=== PATIENT | female | born 1960 | race Caucasian/White ===

== ENCOUNTER 2020-01-28 15:25 | Emergency (ER) | payer MEDICARE, MEDICAID, SELFPAY ==
[2020-01-28] VITALS (37 sets, daily range): BP systolic 100–168; BP diastolic 41–87; PULSE 69–85; RESP 11–34; TEMP 37.1; O2SAT 96–100
[2020-01-28 17:15] LABS: Glucose Point of Care 189 (65-105)
--- NOTE | 2020-01-28 17:36 | ED.GENADULT ---
HPI - General Adult General Chief complaint: Shortness of Breath/Dyspnea Stated complaint: MULTIPLE C/O Time Seen by Provider: 01/28/20 16:21 History of Present Illness HPI narrative: This is a 59-year-old female who presents to the emergency department with complaint of parasites . Patient has a longstanding history of 3 years plus with [place] infectious disease but feels that they are not taking her seriously. She has been told she has cellulitis of the face but she does not believe this to be true and states she sees parasites on her body creating open wounds. She reports this is also causing her to have difficulty breathing as it is causing swelling in her nose. Patient is speaking in full sentences, SPO2 is 100% on 4 L per nasal cannula, which is patient's norm for O2 flow. She denies any fever or chills. She reports she has had increased abdominal pain that has been intermittent and a poor appetite. She is requesting referrals within the [facility] for further evaluation. Related Data Allergies Allergy/AdvReac Type Severity Reaction Status Date / Time adhesive Allergy Unknown Verified 01/28/20 15:51 clindamycin Allergy Unknown Verified 01/28/20 15:51 metformin Allergy Unknown Verified 01/28/20 15:51 mupirocin [From Bactroban] Allergy Unknown Verified 01/28/20 15:51 nitrofurantoin Allergy Unknown Verified 01/28/20 15:51 [From Macrobid] prochlorperazine Allergy Unknown Verified 01/28/20 15:51 [From Compazine] Review of Systems Review of Systems: Narrative: CONSTITUTIONAL: Denies fever, chills, or sweats. EYES: Denies visual changes, redness, or discharge. ENT: Denies rhinorrhea, congestion, sore throat, or otalgia. Has scabbed extensive wound to submental area that has been diagnosed as cellulitis. CARDIOVASCULAR: Denies chest pain, palpitations, or edema. RESPIRATORY: Denies cough or dyspnea. GASTROINTESTINAL: Reports intermittent abdominal pain, poor appetite. Denies nausea, vomiting, diarrhea. Reports seeing parasites with hair in her stools. GENITOURINARY: Denies dysuria or hematuria. SKIN: Patient has multiple circular scabbed areas that she reports as contact areas from parasites. MUSCULOSKELETAL: Denies back pain, joint pain, or myalgia. NEUROLOGIC: Denies headache, numbness, or weakness. PSYCHIATRIC: Has a history of anxiety and depression PMFSH Past Medical History Medical History (Updated 01/28/20 @ 20:51 by ASHKAN Mcdonald) Anemia CAD (coronary artery disease) Cellulitis, face CHF (congestive heart failure) History of diabetes mellitus HLD (hyperlipidemia) Hypertension Surgical History Surgical History (Updated 01/28/20 @ 20:54 by ASHKAN Mcdonald) H/O hysterectomy with unilateral oophorectomy History of appendectomy History of cholecystectomy Family History Family History (Updated 01/28/20 @ 20:52 by ASHKAN Mcdonald) Father Lung cancer Sibling Thyroid condition Exam Narrative: Exam Narrative: GENERAL: Well-appearing, well-nourished, and in no acute distress. HEAD: Normocephalic, atraumatic. EYES: Sclera anicteric ENT: Nares clear, no rhinorrhea or epistaxis. Mucous membranes moist. NECK: Supple. No cervical lymphadenopathy CHEST: Clear to auscultation. No respiratory distress. HEART: Regular rate and rhythm. No murmur heard. Normal peripheral pulses. ABDOMEN: Soft, obese, nondistended, mildly tender diffusely to light palpation, normal active bowel sounds. EXTREMITIES: No edema. Ambulatory with a cane SKIN: Warm, dry, multiple small scabbed areas over face, neck, torso. No erythema/drainage from these sites. Scabbed elongated wound to submental area (x3 years)-no erythema or drainage NEURO: No focal deficits. Alert and oriented x3. PSYCH: Normal mood and affect. Course Course Emergency Course: Discussed lab and diagnostic findings with the patient. Status has remained unchanged. VS are stable. Speaks in full sentences. Pt feels co
[2020-01-28 18:21] LABS: Basophils Percent Auto 0.4 % (0.2-1.2); Eosinophils Absolute Auto 0.1 K/mm3 (0-0.3); Hematocrit 36.3 % (37.0-47.0); Hemoglobin 11.4 g/dL (12.0-15.0); Immature Granulocyte Absolute 0.02 K/mm3 (0.00-0.031); Immature Granulocyte Percent A 0.4 % (0-0.5); Lymphocytes Absolute Auto 0.76 K/mm3 (0.9-3.2); Lymphocytes Percent Auto 13.5 % (18.3-44.2); Mean Corpuscular HGB Conc 31.4 g/dl (32-36); Mean Corpuscular Hemoglobin 26.7 pg (26-34); Mean Platelet Volume 9.6 fl (7.4-10.4); Monocytes Absolute Auto 0.3 K/mm3 (0.1-0.6); Neutrophils Absolute Auto 4.4 K/mm3 (1.3-6.7); Neutrophils Percent Auto 77.7 % (45.5-73.1); Platelet Count Result 172 k/mm3 (150-375); Red Blood Count 4.27 M/mm3 (4.2-5.4); Red Cell Distribution Width 13.6 % (11.5-14.5); White Blood Count 5.6 K/mm3 (4.5-10.0)
[2020-01-28 18:37] LABS: Alanine Aminotransferase 15 U/L (4-35); Albumin Level 4.2 g/dL (3.5-5.1); Alkaline Phosphatase 129 U/L (38-126); Aspartate Amino Transferase 23 U/L (14-36); Bilirubin,Total 0.4 mg/dL (0.2-1.3); Blood Urea Nitrogen 9 mg/dL (7-17); Calcium 9.7 mg/dL (8.4-10.2); Carbon Dioxide > 40 mmol/L (22-30); Chloride 94 mmol/L (98-107); Estimated CRCL calculation 79 ml/min; Estimated Glomerular Filt Rate > 60; Glucose 170 mg/dL (65-105); Lipase 80 U/L (23-300); Potassium 3.8 mmol/L (3.4-5.0); Sodium 138 mmol/L (137-145)
[2020-01-28 19:27] LABS: Alveolar/Arterial O2 Gradient 86.9 mmHg; Base Excess ABG 6.8 mEq/l (+/-2.0); Fractional Inspired Oxygen 40 %; HCO3 ABG 30.9 mEq/l (22.0-26.0); Oxygen Content ABG 17.1 %vol (16.0-22.0); Oxygen Saturation ABG 99.1 % (95.0-100.0); PCO2 ABG 42.2 mmHg (35.0-45.0); PO2 ABG 149.8 mmHg (80.0-100.0); PO2 FiO2 Ratio Arterial Blood 3.75 %; Total Hemoglobin 12.2 g/dL (12.0-18.0); pH ABG 7.483 (7.350-7.450)
[2020-01-28 19:28] LABS: Device NASAL CANNULA; Modified Allen's Test Pass; Site Drawn RIGHT RADIAL
== END 2020-01-28 19:54 | disposition home or self-care (01) ==
PROVIDERS: Nurse Practitioner
DX: R10.84 Generalized abdominal pain (principal); D64.9 Anemia, unspecified; I25.10 Atherosclerotic heart disease of native coronary artery without angina pectoris; I50.9 Heart failure, unspecified; E11.9 Type 2 diabetes mellitus without complications; E78.5 Hyperlipidemia, unspecified; I11.0 Hypertensive heart disease with heart failure
CPT/HCPCS: 36415; 36600; 80053; 82805; 82948; 83690; 85025; 99283

== ENCOUNTER 2020-02-17 15:41 | Outpatient (CLI) | payer MEDICARE, MEDICAID, SELFPAY ==
--- NOTE | ~2020-02-17 | XR_ITS ---
XR abdomen obstructive series 02/17/2020 16:13 Indication: Lower abdominal pain and bloating. Nausea. Constipation. Procedure: Supine and upright views of the abdomen Comparison: No prior studies for comparison. Findings: Bowel pattern is nonobstructive. Moderate colonic fecal loading. There are cholecystectomy clips. There are surgical clips in the right lower abdomen, possibly cyst due to appendectomy. Correl ate clinically. There are pelvic phleboliths. Lung bases unremarkable. Impression: 1: No acute abdominal abnormality. Reviewed, dictated and finalized at location A. Impression: 1: No acute abdominal abnormality.
== END 2020-02-17 15:42 | disposition home or self-care (01) ==
LOC: CHSIMG 15:53
PROVIDERS: PCP Family Medicine; Visit Provider Family Medicine
DX: K59.00 Constipation, unspecified (principal); R11.2 Nausea with vomiting, unspecified
CPT/HCPCS: 74019

== ENCOUNTER 2020-02-18 16:11 | Outpatient (CLI) | payer MEDICARE, SELFPAY ==
[2020-02-18 16:28] LABS: Basophils Absolute Auto 0.02 K/mm3 (0.00-0.10); Basophils Percent Auto 0.3 % (0.0-1.0); Eosinophils Percent Auto 1.3 % (1.0-6.0); Hematocrit 33.4 % (35.0-49.0); Hemoglobin 10.8 g/dL (12.0-15.0); Immature Granulocyte Absolute 0.04 K/mm3 (0.00-0.00); Immature Granulocyte Percent A 0.5 % (0.0-0.0); Lymphocytes Absolute Auto 1.02 K/mm3 (1.10-4.50); Lymphocytes Percent Auto 13.7 % (18.0-42.0); Mean Corpuscular HGB Conc 32.3 g/dL (32.0-36.0); Mean Corpuscular Hemoglobin 27.1 pg (27.0-31.0); Mean Corpuscular Volume 83.7 fL (78.0-102.0); Mean Platelet Volume 9.6 fl (9.2-11.8); Monocytes Absolute Auto 0.41 K/mm3 (0.10-0.90); Monocytes Percent Auto 5.5 % (2.0-11.0); Neutrophils Absolute Auto 5.9 K/mm3 (1.7-7.2); Neutrophils Percent Auto 78.7 % (50.0-70.0); Platelet Count Result 156 K/mm3 (150-420); Red Blood Count 3.99 M/mm3 (4.20-5.40); Red Cell Distribution Width 13.1 % (11.6-14.4); White Blood Count 7.4 K/mm3 (4.8-10.8)
[2020-02-18 17:06] LABS: Alanine Aminotransferase 14 U/L (14-59); Albumin Level 3.3 g/dL (3.4-5.0); Alkaline Phosphatase 119 U/L (46-116); Anion Gap 11.4 mmol/L (7-16); Aspartate Amino Transferase 19 U/L (15-37); Bilirubin,Total 0.3 mg/dL (0.00-1.00); Blood Urea Nitrogen 17 mg/dL (7-18); Calcium 8.8 mg/dL (8.5-10.1); Carbon Dioxide 34 mmol/L (21-32); Chloride 101 mmol/L (98-108); Estimated Glomerular Filt Rate 41; Glucose 217 mg/dL (70-99); Osmolality Calculated 302 mOsm/kg (285-295); Potassium 4.4 mmol/L (3.5-5.1); Sodium 142 mmol/L (136-145)
== END 2020-02-18 16:12 | disposition home or self-care (01) ==
LOC: CHSLAB 16:16
PROVIDERS: PCP Family Medicine; Visit Provider Family Medicine
DX: S01.90XA Unspecified open wound of unspecified part of head, initial encounter (principal); S11.90XA Unspecified open wound of unspecified part of neck, initial encounter; R11.2 Nausea with vomiting, unspecified
CPT/HCPCS: 36415; 80053; 85025

== ENCOUNTER 2020-02-19 09:46 | Outpatient (RCR) | payer MEDICARE, MEDICAID, SELFPAY ==
[2020-02-19 12:34] VITALS: BMI 45.3
== END 2020-05-04 07:53 | disposition home or self-care (01) ==
LOC: ANHWOC 09:46
PROVIDERS: PCP Family Medicine; Visit Provider Family Medicine
DX: S01.90XD Unspecified open wound of unspecified part of head, subsequent encounter (principal); S11.90XD Unspecified open wound of unspecified part of neck, subsequent encounter
CPT/HCPCS: 99212; A9270; G0463

== ENCOUNTER 2020-02-20 19:02 | Emergency (ER) | payer MEDICARE, MEDICAID, SELFPAY ==
[2020-02-20 19:29] VITALS: BP 151/81; PULSE 79; RESP 20; TEMP 36.8; O2SAT 99
--- NOTE | 2020-02-20 19:55 | PC.NURSE ---
Bilateral calf wounds irrigated with sterile saline 1000mL. Pt tolerated well. Awaiting further laceration care/instruction per Dr Fernandez.
[2020-02-20 20:27] VITALS: BP 155/80; PULSE 75; RESP 20; O2SAT 100
--- NOTE | 2020-02-20 20:27 | PC.NURSE ---
Continues to wait for eval per Dr Fernandez. No change in condition. [place] provided.
[2020-02-20 21:00] VITALS: BP 171/95; PULSE 80; RESP 20; O2SAT 100
--- NOTE | 2020-02-20 21:30 | PC.NURSE ---
Dr Fernandez at bedside for initial eval.
--- NOTE | 2020-02-20 21:51 | ED.WOUNDLAC ---
HPI - Wound/Laceration General Chief Complaint: Wound/Laceration Stated Complaint: face wound Source: patient Mode of arrival: ambulatory Limitations: no limitations History of Present Illness HPI narrative: 59 y.o. with open wound anterior neck x 6 weeks. Pt. states she has been taking doxycylcine x 3.5 weeks prescribed by infectious disease doc for staph aureus. She is being followed at a wound clinic, last seen 2 or 3 days ago. The wound has been painful, reduced with [place] 10/325 QID. During the night she developed increased itching and tenderness. Today at 4 PM she began having shooting pain throughout the wound, rated 14/10 on arrival. Pt had chills for several hours this afternoon. Denies fever. Moving her jaw, biting down, swallowing or other activities do not make the pain worse. She spoke wither her PCP today who started gentamicin ointment. She's worried this may cause her throat to close up during the night, or may heal incorrectly leaving a deformity in her neck. She has a hx of skin picking and chronic rash on trunk and perineum. Related Data Home Medications Medication Instructions Recorded Confirmed allopurinol 100 mg tablet 100 mg PO DAILY 02/06/20 02/20/20 amlodipine 5 mg tablet 5 mg PO DAILY 02/06/20 02/20/20 ascorbate calcium (vitamin C) 500 500 mg PO DAILY 02/06/20 02/20/20 mg tablet aspirin 81 mg tablet,delayed 81 mg PO DAILY 02/06/20 02/20/20 release atorvastatin 20 mg tablet 20 mg PO DAILY 02/06/20 02/20/20 buspirone 15 mg tablet 30 mg PO BID 02/06/20 02/20/20 calcium polycarbophil 625 mg tablet 1,250 mg PO DAILY 02/06/20 02/20/20 cholecalciferol (vitamin D3) 1,250 50,000 unit PO WEEKLY 02/06/20 02/20/20 mcg (50,000 unit) capsule cyclosporine 0.05 % eye drops in a 1 drop EACH EYE Q12H 02/06/20 02/20/20 dropperette doxycycline hyclate 100 mg capsule 100 mg PO Q12H cap 02/06/20 02/20/20 ferrous sulfate 325 mg (65 mg 325 mg PO BID 02/06/20 02/20/20 iron) tablet fluticasone propionate 50 1 spray NASAL DAILY 02/06/20 02/20/20 mcg/actuation nasal spray,suspension furosemide 40 mg tablet 40 mg PO QAM 02/06/20 02/20/20 gabapentin 400 mg capsule 400 mg PO BID cap 02/06/20 02/20/20 glipizide 5 mg tablet 5 mg PO BID 02/06/20 02/20/20 hydrocodone 10 mg-acetaminophen 1 tablet PO Q4H PRN 02/06/20 02/20/20 325 mg tablet linaclotide 72 mcg capsule 72 mcg PO DAILY 02/06/20 02/20/20 magnesium oxide 400 mg (241.3 mg 400 mg PO DAILY 02/06/20 02/20/20 magnesium) tablet methyl salicylate 15 %-menthol 1 % 1 applic TOPICAL TID 02/06/20 02/20/20 topical cream metoprolol succinate 50 mg 50 mg PO BID 02/06/20 02/20/20 tablet,extended release 24 hr montelukast 10 mg tablet 10 mg PO DAILY 02/06/20 02/20/20 nitroglycerin 0.4 mg sublingual 0.4 mg SUBLINGUAL Q5M PRN 02/06/20 02/20/20 tablet omeprazole 20 mg capsule,delayed 20 mg PO DAILY 02/06/20 02/20/20 release ropinirole 4 mg tablet 4 mg PO HS tablet 02/06/20 02/20/20 sitagliptin 100 mg tablet 100 mg PO DAILY 02/06/20 02/20/20 venlafaxine 150 mg 300 mg PO QAM cap 02/06/20 02/20/20 capsule,extended release 24 hr docusate sodium 50 mg capsule 50 mg PO BID cap 02/20/20 02/20/20 gabapentin 800 mg PO HS 02/20/20 02/20/20 hydroxyzine HCl 25 mg PO BID 02/20/20 02/20/20 indomethacin 50 mg PO BID 02/20/20 02/20/20 trazodone 200 mg PO HS 02/20/20 02/20/20 Allergies Allergy/AdvReac Type Severity Reaction Status Date / Time adhesive Allergy Unknown Verified 02/17/20 10:21 clindamycin Allergy Unknown Verified 02/17/20 10:21 metformin Allergy Unknown Verified 02/17/20 10:21 mupirocin [From Bactroban] Allergy Unknown Verified 02/17/20 10:21 nitrofurantoin Allergy Unknown Verified 02/17/20 10:21 [From Macrobid] prochlorperazine Allergy Unknown Verified 02/17/20 10:21 [From Compazine] Review of Systems Constitutional: Constitutional: Denies fever(s) ENT: Denies dental pain, Denies dysphagia, Denies sore throat and D
[2020-02-20] MEDS: CLONIDINE HCL 0.1 MG TABLET PO (22:00)
--- NOTE | 2020-02-20 22:02 | PC.NURSE ---
Wound culture obtained by Dr Fernandez, sent to lab.
--- NOTE | 2020-02-20 22:03 | PC.NURSE ---
Clonidine order verified with Dr Fernandez. States he is giving medication for pt's report of pain.
[2020-02-20 22:09] LABS: Basophils Absolute Auto 0.03 K/mm3 (0.00-0.10); Basophils Percent Auto 0.5 % (0.0-1.0); Eosinophils Percent Auto 3.2 % (1.0-6.0); Hematocrit 33.4 % (35.0-49.0); Hemoglobin 10.5 g/dL (12.0-15.0); Immature Granulocyte Absolute 0.03 K/mm3 (0.00-0.00); Immature Granulocyte Percent A 0.5 % (0.0-0.0); Lymphocytes Absolute Auto 1.34 K/mm3 (1.10-4.50); Lymphocytes Percent Auto 21.3 % (18.0-42.0); Mean Corpuscular HGB Conc 31.4 g/dL (32.0-36.0); Mean Corpuscular Volume 85.9 fL (78.0-102.0); Mean Platelet Volume 9.1 fl (9.2-11.8); Monocytes Absolute Auto 0.46 K/mm3 (0.10-0.90); Monocytes Percent Auto 7.3 % (2.0-11.0); Neutrophils Absolute Auto 4.2 K/mm3 (1.7-7.2); Neutrophils Percent Auto 67.2 % (50.0-70.0); Platelet Count Result 138 K/mm3 (150-420); Red Blood Count 3.89 M/mm3 (4.20-5.40); Red Cell Distribution Width 13.2 % (11.6-14.4); White Blood Count 6.3 K/mm3 (4.8-10.8)
[2020-02-20 22:16] VITALS: BP 167/89; PULSE 82; RESP 20; O2SAT 99
[2020-02-20 22:17] LABS: Anion Gap 7.1 mmol/L (7-16); Blood Urea Nitrogen 10 mg/dL (7-18); Carbon Dioxide 35 mmol/L (21-32); Chloride 102 mmol/L (98-108); Estimated CRCL calculation 73 ml/min; Estimated Glomerular Filt Rate 58; Glucose 115 mg/dL (70-99); Osmolality Calculated 290 mOsm/kg (285-295); Potassium 4.1 mmol/L (3.5-5.1); Sodium 140 mmol/L (136-145)
[2020-02-20 23:05] VITALS: BP 142/89; PULSE 79; RESP 20; O2SAT 100
== END 2020-02-20 23:05 | disposition home or self-care (01) ==
PROVIDERS: Emergency Provider Family Medicine; PCP Family Medicine
DX: S11.90XA Unspecified open wound of unspecified part of neck, initial encounter (principal); M54.2 Cervicalgia; I25.10 Atherosclerotic heart disease of native coronary artery without angina pectoris; I11.0 Hypertensive heart disease with heart failure; I50.9 Heart failure, unspecified; E11.9 Type 2 diabetes mellitus without complications; E78.5 Hyperlipidemia, unspecified
CPT/HCPCS: 36415; 80048; 85025; 87070; 87077; 87186; 87205; 99282; 99283; A9270

== ENCOUNTER 2020-03-15 13:04 | Emergency (ER) | payer MEDICARE, MEDICAID, SELFPAY ==
[2020-03-15 13:30] VITALS: BP 141/73; PULSE 79; RESP 20; TEMP 36.9; O2SAT 97
--- NOTE | 2020-03-15 13:44 | ED.SKABFB ---
HPI - Skin/Abscess/Foreign Bdy General Chief complaint: Skin/Abscess/Foreign Body Stated complaint: Pain on skin and back Source: patient Mode of arrival: ambulatory Limitations: no limitations History of Present Illness HPI narrative: This is a 59-year-old female with multiple medical problems with diabetes hypertension and chronic MRSA infections some currently having a lesion mid back that is burning, with an area of erythema and apparent vesicle that appeared healed, currently no fever or chills and has been treated for MRSA in the past for lesions under her chin and on various areas of her body. Patient is seeing Infectious Disease is for this condition. Currently there is no chest pain no shortness of breath no fever chills no nausea vomiting. The area on her back is tender currently not draining is flat macular looks like healed vesicles with some crusting and surrounding erythema that she describes as burning and painful. MD complaint: rash Onset (ago): day(s) Location: back Severity: moderate Severity scale (1-10): 7 Quality: burning Pain Consistency: constant Relieving factors: none Exacerbating factors: none Context: recent illness Associated symptoms: denies other symptoms Treatments prior to arrival: none Related Data Home Medications Medication Instructions Recorded Confirmed aspirin 81 mg tablet,delayed 81 mg PO DAILY 02/06/20 03/15/20 release buspirone 15 mg tablet 30 mg PO BID 02/06/20 03/15/20 calcium polycarbophil 625 mg tablet 1,250 mg PO DAILY 02/06/20 03/15/20 doxycycline hyclate 100 mg capsule 100 mg PO Q12H cap 02/06/20 03/15/20 furosemide 40 mg tablet 40 mg PO QAM 02/06/20 03/15/20 hydrocodone 10 mg-acetaminophen 1 tablet PO Q4H PRN 02/06/20 03/15/20 325 mg tablet methyl salicylate 15 %-menthol 1 % 1 applic TOPICAL TID 02/06/20 03/15/20 topical cream nitroglycerin 0.4 mg sublingual 0.4 mg SUBLINGUAL Q5M PRN 02/06/20 03/15/20 tablet sitagliptin 100 mg tablet 100 mg PO DAILY 02/06/20 03/15/20 hydroxyzine HCl 25 mg PO BID 02/20/20 03/15/20 sulfamethoxazole 800 1 tablet PO Q12H 02/25/20 03/15/20 mg-trimethoprim 160 mg tablet Allergies Allergy/AdvReac Type Severity Reaction Status Date / Time adhesive Allergy Unknown Unknown Verified 03/05/20 10:22 clindamycin Allergy Unknown Unknown Verified 03/05/20 10:22 metformin Allergy Unknown Unknown Verified 03/05/20 10:22 mupirocin [From Bactroban] Allergy Unknown Unknown Verified 03/05/20 10:22 nitrofurantoin Allergy Unknown Verified 03/05/20 10:22 [From Macrobid] prochlorperazine Allergy Unknown Verified 03/05/20 10:22 [From Compazine] Review of Systems Review of Systems: All systems reviewed & are unremarkable except as noted in HPI and below PMFSH Past Medical History Medical History Anemia CAD (coronary artery disease) Cellulitis, face CHF (congestive heart failure) History of diabetes mellitus HLD (hyperlipidemia) Hypertension Surgical History Surgical History H/O hysterectomy with unilateral oophorectomy History of appendectomy History of cholecystectomy Family History Family History Father Lung cancer Sibling Thyroid condition Social History Social History Gender identity (if verbalized by the patient): Female Exam Const: General: no acute distress Orientation/consciousness: patient oriented x3 HENMT: Head: normal to inspection Eyes: Pupils: Equal, round and reactive pupils present Neck: Neck: normal visual inspection Chest: Chest palpation & inspection: normal inspection of the chest Resp: Effort & Inspection: normal respiratory effort Cardio: Rate: regular rate Rhythm: regular rhythm GI: Auscultation: normal bowel sounds : General: Yes no CVA tenderness Ski
[2020-03-15] MEDS: ACYCLOVIR 200 MG CAPSULE 800 MG PO (13:55)
[2020-03-15] MEDS: MORPHINE SULFATE 4 MG/ML INJ 2 MG IM (13:55)
[2020-03-15 14:08] VITALS: RESP 17
== END 2020-03-15 14:12 | disposition home or self-care (01) ==
PROVIDERS: Emergency Provider Emergency Medicine; PCP Family Medicine
DX: L03.312 Cellulitis of back [any part except buttock and flank] (principal); B02.8 Zoster with other complications
CPT/HCPCS: 96372; 99283; A9270; J2270

== ENCOUNTER 2020-04-05 13:46 | Emergency (ER) | payer MEDICARE, MEDICAID, SELFPAY ==
[2020-04-05 13:50] VITALS: BP 161/78; PULSE 88; RESP 20; TEMP 36.4; O2SAT 99
--- NOTE | 2020-04-05 13:53 | ED.FEVER ---
HPI - Fever General Chief Complaint: Fever Stated Complaint: fever Time Seen by Provider: 04/05/20 13:54 Source: patient and RN notes reviewed Mode of arrival: ambulatory Limitations: no limitations History of Present Illness HPI Narrative: patient states that she has been having feelings of general malaise. She took her temperature home and it was 99.6. 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 She states she has been having some abdominal pain in the right upper quadrant. MD elicited complaint: fever and malaise Pertinent past history: diabetes Exacerbating factors: nothing Relieving factors: nothing Associated symptoms: abdominal pain Related Data Home Medications Medication Instructions Recorded Confirmed aspirin 81 mg tablet,delayed 81 mg PO DAILY 02/06/20 03/23/20 release calcium polycarbophil 625 mg tablet 1,250 mg PO DAILY 02/06/20 03/23/20 doxycycline hyclate 100 mg capsule 100 mg PO Q12H cap 02/06/20 03/23/20 furosemide 40 mg tablet 40 mg PO QAM 02/06/20 03/23/20 hydrocodone 10 mg-acetaminophen 1 tablet PO Q4H PRN 02/06/20 03/23/20 325 mg tablet methyl salicylate 15 %-menthol 1 % 1 applic TOPICAL TID 02/06/20 03/23/20 topical cream nitroglycerin 0.4 mg sublingual 0.4 mg SUBLINGUAL Q5M PRN 02/06/20 03/23/20 tablet sitagliptin 100 mg tablet 100 mg PO DAILY 02/06/20 03/23/20 hydroxyzine HCl 25 mg PO BID 02/20/20 03/23/20 Allergies Allergy/AdvReac Type Severity Reaction Status Date / Time adhesive Allergy Unknown Unknown Verified 03/05/20 10:22 clindamycin Allergy Unknown Unknown Verified 03/05/20 10:22 metformin Allergy Unknown Unknown Verified 03/05/20 10:22 mupirocin [From Bactroban] Allergy Unknown Unknown Verified 03/05/20 10:22 nitrofurantoin Allergy Unknown Verified 03/05/20 10:22 [From Macrobid] prochlorperazine Allergy Unknown Verified 03/05/20 10:22 [From Compazine] Review of Systems Constitutional: Constitutional: Denies chills Eyes: Eyes: Reports no additional eye complaints ENT: Reports system reviewed and no additional complaints, except as documented Cardiovascular: Cardiovascular: Reports no additional cardiovascular complaints Respiratory: Respiratory: Reports no additional respiratory complaints Gastrointestinal: Gastrointestinal: Reports abdominal pain (RUQ), Denies nausea and Denies vomiting Genitourinary: Genitourinary: Reports no additional female genitourinary complaints Neurologic: Reports system reviewed and no additional complaints, except as documented Psychiatric: Psychiatric: Reports no additional psychiatric complaints Allergic/Immunologic: Allergic/Immunologic: Reports no additional allergic/immunologic complaints PMFSH Past Medical History Medical History Anemia CAD (coronary artery disease) Cellulitis, face CHF (congestive heart failure) History of diabetes mellitus HLD (hyperlipidemia) Hypertension Surgical History Surgical History H/O hysterectomy with unilateral oophorectomy History of appendectomy History of cholecystectomy Family History Family History Father Lung cancer Sibling Thyroid condition Social History Social History Gender identity (if verbalized by the patient): Female Exam Const: General: healthy appearing, no acute distress and alert Nutritional Appearance: well nourished and obese centrally obese Orientation/consciousness: patient oriented x3 HENMT: Head: normal to inspection Ears: external ears normal General nose exam: Normal external nose present Face and sinus: normal facial exam Mouth: Yes lip normal Eyes: Conjunctivae: conjunctivae normal Pupils: Equal, round and reactive pupils present EOM: EOMs intact bilaterally Neck:
[2020-04-05 14:38] LABS: Basophils Absolute Auto 0.04 K/mm3 (0.00-0.10); Basophils Percent Auto 0.5 % (0.0-1.0); Eosinophils Absolute Auto 0.24 K/mm3 (0.02-0.50); Eosinophils Percent Auto 2.9 % (1.0-6.0); Hematocrit 34.7 % (35.0-49.0); Hemoglobin 10.8 g/dL (12.0-15.0); Immature Granulocyte Absolute 0.03 K/mm3 (0.00-0.00); Immature Granulocyte Percent A 0.4 % (0.0-0.0); Lymphocytes Absolute Auto 1.27 K/mm3 (1.10-4.50); Lymphocytes Percent Auto 15.4 % (18.0-42.0); Mean Corpuscular HGB Conc 31.1 g/dL (32.0-36.0); Mean Corpuscular Hemoglobin 26.9 pg (27.0-31.0); Mean Corpuscular Volume 86.5 fL (78.0-102.0); Mean Platelet Volume 9.3 fl (9.2-11.8); Monocytes Absolute Auto 0.48 K/mm3 (0.10-0.90); Monocytes Percent Auto 5.8 % (2.0-11.0); Neutrophils Absolute Auto 6.2 K/mm3 (1.7-7.2); Platelet Count Result 182 K/mm3 (150-420); Red Blood Count 4.01 M/mm3 (4.20-5.40); Red Cell Distribution Width 13.3 % (11.6-14.4); White Blood Count 8.2 K/mm3 (4.8-10.8)
[2020-04-05 14:39] LABS: Add Urine Microscopic? NO; Appearance Urine Clear (Clear); Bilirubin Urine Negative (Negative); Blood Urine Negative (Negative); Color Urine Yellow (Yellow); Glucose Urine UA Negative (Negative); Ketones Urine Negative (Negative); Leukocyte Esterase Ur Negative LEU/UL (Negative); Nitrate Urine Negative (Negative); Protein Urine Negative (Negative); Specific Grav Ur 1.015 (1.010-1.020); Urobilinogen Urine 0.2 mg/dL (0.2-1.0); pH Urine 5.5 (5.0-8.0)
[2020-04-05 14:54] LABS: Alanine Aminotransferase 14 U/L (14-59); Albumin Level 3.4 g/dL (3.4-5.0); Alkaline Phosphatase 140 U/L (46-116); Anion Gap 8.9 mmol/L (7-16); Aspartate Amino Transferase 18 U/L (15-37); Bilirubin,Total 0.3 mg/dL (0.00-1.00); Blood Urea Nitrogen 16 mg/dL (7-18); CRP 2.6 mg/dL (0.0-0.9); Calcium 9.2 mg/dL (8.5-10.1); Carbon Dioxide 35 mmol/L (21-32); Chloride 100 mmol/L (98-108); Estimated Glomerular Filt Rate 50; Glucose 159 mg/dL (70-99); Osmolality Calculated 294 mOsm/kg (285-295); Potassium 3.9 mmol/L (3.5-5.1); Sodium 140 mmol/L (136-145); Total Protein 7.1 g/dL (6.4-8.2)
[2020-04-05 15:30] VITALS: PULSE 88; RESP 18; O2SAT 99
== END 2020-04-05 15:30 | disposition home or self-care (01) ==
PROVIDERS: Emergency Provider Emergency Medicine; PCP Family Medicine
DX: R10.9 Unspecified abdominal pain (principal); I25.10 Atherosclerotic heart disease of native coronary artery without angina pectoris; I50.9 Heart failure, unspecified; E78.5 Hyperlipidemia, unspecified; I10 Essential (primary) hypertension
CPT/HCPCS: 36415; 80053; 81003; 85025; 86140; 99283

== ENCOUNTER 2020-04-10 21:45 | Emergency (ER) | payer MEDICARE, MEDICAID, SELFPAY ==
[2020-04-10 22:10] VITALS: BP 150/83; PULSE 88; RESP 18; TEMP 37.5; O2SAT 100
--- NOTE | 2020-04-10 22:38 | ED.WOUNDLAC ---
HPI - Wound/Laceration General Chief Complaint: Wound/Laceration Stated Complaint: abscess on back,skin infection,fever,body aches Time Seen by Provider: 04/10/20 22:00 Source: patient Mode of arrival: wheelchair Limitations: no limitations History of Present Illness HPI narrative: 59-year-old woman with a history of type 2 diabetes, coronary artery disease, chronic facial wound, coronary artery disease, congestive heart failure, hypertension comes in today complaining of painful lesions on her back, fever, fatigue and not feeling well. She states that the lesions are very small yesterday that her much larger today and swollen. She states that her temperature was up to 100.0 today. She is normally not that high. She states that she feels nauseous and weak. She states that she has parasitic infections , is a chronic wound pickers material handlers, and she is being treated by Dr. Day, [facility]. Staff who saw her 5 days ago states the wound sizes have not changed significantly. Onset (ago): day(s) Location: face Body four view annotation: 1. 3 x 7 cm wound with swelling at the caudal aspect. No fluctuance. Roughly triangular shaped area of denuded skin. 2. 3 x 7 cm wound with denuded skin but minimal swelling or erythema. No fluctuance and minimal induration. 3. 8 by 2.5 cm wound without drainage or swelling. There is pink granulation tissue present. Place: home Context: other ( chronic wound packing) Associated symptoms: suspect foreign body present ( hookworms ), nausea/vomiting and fever Related Data Home Medications Medication Instructions Recorded Confirmed aspirin 81 mg tablet,delayed 81 mg PO DAILY 02/06/20 04/10/20 release furosemide 40 mg tablet 40 mg PO QAM 02/06/20 04/10/20 hydrocodone 10 mg-acetaminophen 1 tablet PO Q4H PRN 02/06/20 04/10/20 325 mg tablet nitroglycerin 0.4 mg sublingual 0.4 mg SUBLINGUAL Q5M PRN 02/06/20 04/10/20 tablet sitagliptin 100 mg tablet 100 mg PO DAILY 02/06/20 04/10/20 hydroxyzine HCl 50 mg PO Q6-8H PRN 02/20/20 04/10/20 ascorbate calcium (vitamin C) 500 mg PO BID 04/10/20 04/10/20 calcium polycarbophil [Fiber-Lax] 1,250 mg PO DAILY 04/10/20 04/10/20 docusate sodium [Stool Softener] 100 mg PO BID 04/10/20 04/10/20 ferrous sulfate 325 mg PO TID 04/10/20 04/10/20 insulin aspart U-100 [Novolog 6 unit SUBCUT TID 04/10/20 04/10/20 Flexpen U-100 Insulin] insulin glargine [Lantus Solostar 20 unit SUBCUT HS 04/10/20 04/10/20 U-100 Insulin] latanoprost 1 drp OPHTHALMIC (EYE) QPM 04/10/20 04/10/20 loratadine 20 mg PO HS 04/10/20 04/10/20 Allergies Allergy/AdvReac Type Severity Reaction Status Date / Time adhesive Allergy Unknown Unknown Verified 03/05/20 10:22 clindamycin Allergy Unknown Unknown Verified 03/05/20 10:22 metformin Allergy Unknown Unknown Verified 03/05/20 10:22 mupirocin [From Bactroban] Allergy Unknown Unknown Verified 03/05/20 10:22 nitrofurantoin Allergy Unknown Verified 03/05/20 10:22 [From Macrobid] prochlorperazine Allergy Unknown Verified 03/05/20 10:22 [From Compazine] Review of Systems Constitutional: Constitutional: Reports fatigue, Reports fever(s) and Reports weakness ENT: Denies dysphagia, Denies nasal congestion and Denies sore throat Cardiovascular: Cardiovascular: Denies chest pain and Denies radiating jaw, neck or arm pain Respiratory: Respiratory: Denies cough, Denies dyspnea and Denies wheezing Gastrointestinal: Gastrointestinal: Denies abdominal pain, Reports constipation, Reports nausea and Denies vomiting Genitourinary: Genitourinary: Denies hematuria, Denies nocturia and Denies dysuria Musculoskeletal: Musculoskeletal: Reports as per HPI, Reports back pain, Denies arthralgias and Denies joint swelling Integumentary/Breasts: Skin/Breast: Reports as per HPI, Reports pruritus, Reports erythema and Denies rash Neurologic: Denies vertigo, Denies dizziness and Denies syncope Hematologic/Lymphatic: Hematologic/Lymph
[2020-04-10 22:44] LABS: Basophils Absolute Auto 0.03 K/mm3 (0.00-0.10); Basophils Percent Auto 0.3 % (0.0-1.0); Eosinophils Absolute Auto 0.21 K/mm3 (0.02-0.50); Hematocrit 33.2 % (35.0-49.0); Hemoglobin 10.4 g/dL (12.0-15.0); Immature Granulocyte Absolute 0.04 K/mm3 (0.00-0.00); Immature Granulocyte Percent A 0.4 % (0.0-0.0); Lymphocytes Percent Auto 7.5 % (18.0-42.0); Mean Corpuscular HGB Conc 31.3 g/dL (32.0-36.0); Mean Corpuscular Hemoglobin 27.1 pg (27.0-31.0); Mean Corpuscular Volume 86.5 fL (78.0-102.0); Mean Platelet Volume 9.6 fl (9.2-11.8); Monocytes Absolute Auto 0.64 K/mm3 (0.10-0.90); Neutrophils Absolute Auto 8.9 K/mm3 (1.7-7.2); Neutrophils Percent Auto 83.8 % (50.0-70.0); Platelet Count Result 209 K/mm3 (150-420); Red Blood Count 3.84 M/mm3 (4.20-5.40); Red Cell Distribution Width 13.3 % (11.6-14.4); White Blood Count 10.6 K/mm3 (4.8-10.8)
[2020-04-10 22:58] LABS: Partial Thromboplastin Time 33.9 SEC (22.3-31.6); Prothrombin Time 9.9 Seconds (9.64-11.0)
[2020-04-10 23:00] LABS: Alanine Aminotransferase 14 U/L (14-59); Albumin Level 3.1 g/dL (3.4-5.0); Alkaline Phosphatase 137 U/L (46-116); Anion Gap 8.8 mmol/L (7-16); Aspartate Amino Transferase 16 U/L (15-37); Bilirubin,Total 0.3 mg/dL (0.00-1.00); Blood Urea Nitrogen 12 mg/dL (7-18); CRP 4.4 mg/dL (0.0-0.9); Calcium 8.6 mg/dL (8.5-10.1); Carbon Dioxide 34 mmol/L (21-32); Chloride 101 mmol/L (98-108); Estimated CRCL calculation 65 ml/min; Estimated Glomerular Filt Rate 49; Glucose 201 mg/dL (70-99); Osmolality Calculated 295 mOsm/kg (285-295); Potassium 3.8 mmol/L (3.5-5.1); Sodium 140 mmol/L (136-145); Total Protein 6.9 g/dL (6.4-8.2)
[2020-04-10 23:03] LABS: Lactic Acid Reflex 1.5 mmol/L (0.4-2.0)
--- NOTE | 2020-04-10 23:08 | PC.NURSE ---
report to angelina marin
[2020-04-10 23:20] LABS: Add Urine Microscopic? NO; Appearance Urine Clear (Clear); Bilirubin Urine Negative (Negative); Blood Urine Negative (Negative); Color Urine Yellow (Yellow); Glucose Urine UA Negative (Negative); Ketones Urine Negative (Negative); Leukocyte Esterase Ur Negative LEU/UL (Negative); Nitrate Urine Negative (Negative); Protein Urine Negative (Negative); Urobilinogen Urine 0.2 mg/dL (0.2-1.0); pH Urine 6.5 (5.0-8.0)
[2020-04-11] MEDS: LIDOCAINE HCL 1% LOCAL INJ 20 ML VIAL 10 ML INFILTRATE
[2020-04-11 00:48] VITALS: BP 142/75; PULSE 85; RESP 20; TEMP 37.2; O2SAT 98
== END 2020-04-11 00:52 | disposition home or self-care (01) ==
PROVIDERS: Emergency Provider Emergency Medicine; PCP Family Medicine
DX: L03.312 Cellulitis of back [any part except buttock and flank] (principal); E11.9 Type 2 diabetes mellitus without complications; I25.10 Atherosclerotic heart disease of native coronary artery without angina pectoris; I11.0 Hypertensive heart disease with heart failure; I50.9 Heart failure, unspecified; E78.5 Hyperlipidemia, unspecified; F17.290 Nicotine dependence, other tobacco product, uncomplicated
CPT/HCPCS: 10060; 10160; 36415; 80053; 81003; 83605; 85025; 85610; 85730; 86140; 87040; 87070; 87077; 87186; 87205; 99283; A9270